=== PATIENT | female | born 1960 | race Caucasian/White ===

== ENCOUNTER 2018-10-05 07:03 | Day surgery (SDC) | payer OTHER ==
[2018-10-05] MEDS ORDERED: PROPOFOL 200 MG INJ (07:49)
[2018-10-05] MEDS ORDERED: MIDAZOLAM 1 MG/ML 2 ML INJ (08:35)
[2018-10-05] MEDS ORDERED: PROPOFOL 40 ML (08:35)
== END 2018-10-05 14:33 | disposition home or self-care (01) ==
LOC: GIL 07:03
DX: Z12.11 Encounter for screening for malignant neoplasm of colon (principal); K64.8 Other hemorrhoids; K57.30 Diverticulosis of large intestine without perforation or abscess without bleeding; I10 Essential (primary) hypertension; E11.9 Type 2 diabetes mellitus without complications; Z79.82 Long term (current) use of aspirin; Z79.84 Long term (current) use of oral hypoglycemic drugs
CPT/HCPCS: 45378; 82962

== ENCOUNTER 2018-10-24 07:10 | Day surgery (SDC) | payer OTHER ==
[~2018-10-24 07:10] MED LIST: LACTATED RINGER'S 1,000 ML IV
[2018-10-24 08:20] LABS: ADD MAN DIFF? NO
[2018-10-24 08:25] LABS: WHITE BLOOD COUNT 5.7 10^3/ul (4.8-10.8)
[2018-10-24 08:25] LABS: BASOPHILS % 0.7 % (0.0-2.0); EOSINOPHILS # 0.1 10^3/ul (0.0-0.5); EOSINOPHILS % 1.2 % (0.0-7.0); HEMATOCRIT 32.2 % (37.0-47.0); HEMOGLOBIN 9.5 g/dl (12.0-16.0); LYMPHOCYTES # 1.5 10^3/ul (0.8-2.9); LYMPHOCYTES % 26.7 % (15.0-51.0); MEAN CORPUSCULAR HEMOGLOBIN 21.4 pg (29.0-33.0); MEAN CORPUSCULAR HGB CONC 29.5 g/dl (32.0-37.0); MEAN CORPUSCULAR VOLUME 72.7 fl (82.0-101.0); MEAN PLATELET VOLUME 9.5 fl (7.4-10.4); MONOCYTE # 0.4 10^3/ul (0.3-0.9); MONOCYTES % 7.7 % (0.0-11.0); NEUTROPHIL # 3.6 10^3/ul (1.6-7.5); NEUTROPHILS % 62.8 % (39.0-77.0); PLATELET COUNT 364 10^3/UL (140-415); RED BLOOD COUNT 4.43 10^6/ul (4.20-5.40); RED CELL DISTRIBUTION WIDTH 15.5 % (11.5-14.5)
[2018-10-24] MEDS ORDERED: SOD CHLORIDE 0.9% 1,000 ML IV (08:30)
[2018-10-24 08:31] LABS: ALANINE AMINOTRANSFERASE 21 IU/L (13-69); ALBUMIN/GLOBULIN RATIO 1.17; ALKALINE PHOSPHATASE 124 IU/L (42-121); ANION GAP 9 (5-13); ASPARTATE AMINO TRANSFERASE 31 IU/L (15-46); BILIRUBIN,INDIRECT 0.6 mg/dl (0-1.1); BILIRUBIN,TOTAL 0.6 mg/dl (0.2-1.3); BLOOD UREA NITROGEN 11 mg/dl (7-20); CALCIUM 9.2 mg/dl (8.4-10.2); CARBON DIOXIDE 28 mmol/L (21-31); CHLORIDE 101 mmol/L (97-110); CREATININE 0.56 mg/dl (0.44-1.00); Estimated GFR > 60 mL/min (>60); GLUCOSE 152 mg/dl (70-220); POTASSIUM 4.1 mmol/L (3.5-5.1); SODIUM 138 mmol/L (135-144); TOTAL PROTEIN 7.4 g/dl (6.1-8.1)
[2018-10-24] MEDS ORDERED: SEVOFLURANE 15 MIN (10:30)
[2018-10-24] MEDS ORDERED: FENTAnyl 50 MCG/ML VIAL (10:59)
[2018-10-24] MEDS ORDERED: MIDAZOLAM 1 MG/ML 2 ML INJ (10:59)
[2018-10-24] MEDS ORDERED: CEFAZOLIN 1 GM INJ (11:37)
[2018-10-24] MEDS ORDERED: PROPOFOL 20 ML (11:37)
[2018-10-24] MEDS ORDERED: LIDOCAINE 2% (SDV) 5 ML INJ ×2 (11:37→12:26)
[2018-10-24] MEDS ORDERED: ONDANSETRON 4 MG INJ (11:38)
[2018-10-24] MEDS ORDERED: BUPIVACAINE 0.25% (MPF) 30 ML INJ (12:21)
[2018-10-24] MEDS ORDERED: LIDOCAINE 1%/EPI 30 ML INJ (12:21)
[2018-10-24] MEDS ORDERED: ROCURONIUM 50 MG INJ (12:26)
[2018-10-24] MEDS ORDERED: PROPOFOL 0 ML (12:26)
== END 2018-10-24 13:25 | disposition home or self-care (01) ==
LOC: SDS 07:10
DX: N95.0 Postmenopausal bleeding (principal); I10 Essential (primary) hypertension; E11.9 Type 2 diabetes mellitus without complications
CPT/HCPCS: 58120; 71045; 80053; 82962; 85025; 86850; 86900; 86901; 88305; 93005